=== PATIENT | male | born 1960 | race Hispanic/Latino ===

== ENCOUNTER → 2018-07-16 | Emergency (ER) | payer SELFPAY ==
[~2018-07-16] VITALS: Ht 162.6 cm; Wt 64.4 kg
--- OUTSIDE RECORDS SUMMARY | 2018-07-16 15:28 | XMS REPORT ---
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 Allergies, Adverse Reactions, Alerts Allergy Name Allergy Type Status Severity Reaction(s) Onset Date Inactive Date Treating Clinician Comments No Known Allergies DA Active U 2016-03-15 00:00:00 Medications This patient has no known medications. Encounters Start Date/Time End Date/Time Encounter Type Admission Type Attending Clinicians Care Facility Care Department Encounter ID 2017-10-10 15:38:30 Inpatient [facility] [id number] 2017-07-17 16:42:05 Inpatient [facility] [id number] 2017-07-17 00:00:00 Inpatient [facility] [id number] 2017-07-16 19:28:00 Inpatient [facility] [id number] 2017-07-16 00:00:00 Inpatient [facility] [id number] 2018-09-03 00:00:00 2018-09-03 00:00:00 Outpatient [facility] [id number] 2018-08-09 00:00:00 2018-08-09 00:00:00 Outpatient [facility] [id number] 2018-08-02 00:00:00 2018-08-02 00:00:00 Outpatient [facility] [id number] 2018-07-29 00:00:00 2018-07-29 00:00:00 Outpatient [facility] [id number] 2018-07-12 00:00:00 2018-07-12 00:00:00 Outpatient [facility] [id number] 2018-07-08 12:53:44 2018-07-08 12:53:44 Outpatient [facility] [id number] 2018-07-08 11:17:11 2018-07-08 11:17:11 Outpatient [facility] [id number] 2018-06-28 11:31:18 2018-06-28 11:31:18 Outpatient [facility] [id number] 2018-06-27 07:43:45 2018-06-27 07:43:45 Outpatient [facility] [id number] 2018-06-10 16:22:13 2018-06-10 16:22:13 Outpatient [facility] [id number] 2018-06-10 13:59:41 2018-06-10 13:59:41 Outpatient [facility] [id number] 2018-06-06 10:19:47 2018-06-06 10:19:47 Outpatient [facility] [id number] 2018-06-06 09:27:04 2018-06-06 09:27:04 Outpatient [facility] [id number] 2018-05-22 00:00:00 2018-05-22 00:00:00 Outpatient [facility] [id number] 2018-05-15 15:24:25 2018-05-15 15:24:25 Outpatient [facility] [id number] 2018-05-09 16:31:23 2018-05-09 16:31:23 Outpatient [facility] [id number] 2018-05-01 17:20:32 2018-05-01 17:20:32 Emergency [facility] [id number] 2018-05-01 16:08:06 2018-05-01 16:08:06 Emergency [facility] [id number] 2018-05-01 12:53:28 2018-05-01 12:53:28 Outpatient [facility] [id number] 2018-04-25 08:44:43 2018-04-25 08:44:43 Outpatient [facility] [id number] 2018-04-19 11:15:26 2018-04-19 11:15:26 Emergency [facility] [id number] 2018-04-19 09:34:27 2018-04-19 09:34:27 Outpatient [facility] [id number] 2018-04-15 00:00:00 2018-04-15 00:00:00 Outpatient [facility] [id number] 2018-04-01 10:09:08 2018-04-01 10:09:08 Outpatient [facility] [id number] 2018-03-19 13:43:55 2018-03-19 13:43:55 Outpatient [facility] [id number] 2018-03-11 11:10:28 2018-03-11 11:10:28 Outpatient [facility] [id number] 2018-02-27 15:35:39 2018-02-27 15:35:39 Outpatient [facility] [id number] 2018-02-26 00:00:00 2018-02-26 00:00:00 Outpatient [facility] [id number] 2018-02-25 00:00:00 2018-02-25 00:00:00 Outpatient [facility] [id number] 2018-02-24 17:22:48 2018-02-24 17:22:48 Emergency [facility] [id number] 2018-02-24 17:22:28 2018-02-24 17:22:28 Emergency [facility] [id number] 2018-02-24 17:22:17 2018-02-24 17:22:17 Emergency [facility] [id number] 2018-02-24 15:01:05 2018-02-24 15:01:05 Emergency [facility] [id number] 2018-02-24 00:00:00 2018-02-24 00:00:00 Emergency [facility] [id number] 2018-02-20 09:04:41 2018-02-20 09:04:41 Outpatient [facility] [id number] 2018-02-20 00:00:00 2018-02-20 00:00:00 Outpatient [facility] [id number] 2018-02-19 00:00:00 2018-02-19 00:00:00 Outpatient [facility] [id number] 2018-02-19 00:00:00 2018-02-19 00:00:00 Outpatient [facility] [id number] 2018-02-15 09:39:43 2018-02-15 09:39:43 Outpatient [facility] [id number] 2018-02-14 07:37:27 2018-02-14 07:37:27 Outpatient [facility] [id number] 2018-02-11 06:18:56 2018-02-11 06:18:56 Outpatient [facility] [id number] 2018-02-09 00:00:00 2018-02-09 00:00:00 Outpatient [facility] [id number] 2018-02-06 00:00:00 2018-02-06 00:00:00 Outpatient [facility] [id number] 2018-01-29 15:24:04 2018-01-29 15:24:04 Outpatient [facility] [id number] 2018-01-29 14:14:11 2018-01-29 14:14:11 Outpatient [facility] [id number] 2018-01-25 00:00:00 2018-01-25 00:00:00 Outpatient [facility] [id number] 2018-01-21 11:27:16 2018-01-21 11:27:16 Outpatient [facility] [id number] 2018-01-19 13:36:54 2018-01-19 13:36:54 Outpatient [facility] [id number] 2018-01-17 00:00:00 2018-01-17 00:00:00 Outpatient [facility] [id number] 2018-01-16 13:02:22 2018-01-16 13:02:22 Outpatient [facility] [id number] 2018-01-16 00:00:00 2018-01-16 00:00:00 Outpatient [facility] [id number] 2018-01-16 00:00:00 2018-01-16 00:00:00 Outpatient [facility] [id number] 2018-01-16 00:00:00 2018-01-16 00:00:00 Outpatient [facility] [id number] 2018-01-16 00:00:00 2018-01-16 00:00:00 Outpatient [facility] [id number] 2018-01-14 00:00:00 2018-01-14 00:00:00 Outpatient [facility] [id number] 2018-01-09 15:15:27 2018-01-09 15:15:27 Outpatient [facility] [id number] 2018-01-09 13:24:34 2018-01-09 13:24:34 Outpatient [facility] [id number] 2018-01-09 00:00:00 2018-01-09 00:00:00 Outpatient [facility] [id number] 2018-01-08 11:15:03 2018-01-08 11:15:03 Outpatient [facility] [id number] 2018-01-04 00:00:00 2018-01-04 00:00:00 Outpatient [facility] [id number] 2018-01-01 09:50:46 2018-01-01 09:50:46 Outpatient [facility] [id number] 2017-12-24 00:00:00 2017-12-24 00:00:00 Outpatient [facility] [id number] 2017-12-21 09:36:40 2017-12-21 09:36:40 Outpatient [facility] [id number] 2017-12-17 00:00:00 2017-12-17 00:00:00 Outpatient [facility] [id number] 2017-12-17 00:00:00 2017-12-17 00:00:00 Outpatient [facility] [id number] 2017-12-13 08:40:38 2017-12-13 08:40:38 Outpatient [facility] [id number] 2017-12-11 00:47:20 2017-12-11 00:47:20 Emergency [facility] [id number] 2017-12-11 00:00:00 2017-12-11 00:00:00 Outpatient [facility] [id number] 2017-12-10 15:14:55 2017-12-10 15:14:55 Outpatient [facility] [id number] 2017-12-05 12:54:24 2017-12-05 12:54:24 Outpatient [facility] [id number] 2017-12-03 06:28:00 2017-12-03 06:28:00 Outpatient [facility] [id number] 2017-12-03 00:00:00 2017-12-03 00:00:00 Outpatient [facility] [id number] 2017-11-26 00:00:00 2017-11-26 00:00:00 Outpatient [facility] [id number] 2017-11-19 00:00:00 2017-11-19 00:00:00 Outpatient [facility] [id number] 2017-11-09 13:21:54 2017-11-09 13:21:54 Outpatient [facility] [id number] 2017-11-09 00:00:00 2017-11-09 00:00:00 Outpatient [facility] [id number] 2017-11-06 16:06:44 2017-11-06 16:06:44 Outpatient [facility] [id number] 2017-11-05 00:00:00 2017-11-05 00:00:00 Outpatient [facility] [id number] 2017-11-05 00:00:00 2017-11-05 00:00:00 Outpatient [facility] [id number] 2017-11-02 00:00:00 2017-11-02 00:00:00 Outpatient [facility] [id number] 2017-10-29 00:00:00 2017-10-29 00:00:00 Outpatient [facility] [id number] 2017-10-29 00:00:00 2017-10-29 00:00:00 Outpatient [facility] [id number] 2017-10-25 08:45:08 2017-10-25 08:45:08 Outpatient [facility] [id number] 2017-10-23 14:10:00 2017-10-23 14:10:00 Outpatient [facility] [id number] 2017-10-23 00:00:00 2017-10-23 00:00:00 Outpatient [facility] [id number] 2017-10-22 13:53:50 2017-10-22 13:53:50 Outpatient [facility] [id number] 2017-10-22 00:00:00 2017-10-22 00:00:00 Outpatient [facility] [id number] 2017-10-17 11:33:30 2017-10-17 11:33:30 Outpatient [facility] [id number] 2017-10-15 13:42:28 2017-10-15 13:42:28 Outpatient [facility] [id number] 2017-10-09 17:59:35 2017-10-09 17:59:35 Outpatient [facility] [id number] 2017-10-09 17:59:31 2017-10-09 17:59:31 Outpatient [facility] [id number] 2017-10-09 12:59:13 2017-10-09 12:59:13 Outpatient [facility] [id number] 2017-10-05 12:25:23 2017-10-05 12:25:23 Outpatient [facility] [id number] 00:00:00 2017 00:00:00 Outpatient [facility] [id number] 2017-10-03 10:14:39 2017-10-03 10:14:39 Outpatient [facility] [id number] 2017-10-03 00:00:00 2017-10-03 00:00:00 Outpatient [facility] [id number] 2017-09-27 00:00:00 2017-09-27 00:00:00 Outpatient [facility] [id number] 2017-09-24 06:56:51 2017-09-24 06:56:51 Outpatient [facility] [id number] 2017-09-14 12:20:59 2017-09-14 12:20:59 Outpatient [facility] [id number] 2017-09-14 00:00:00 2017-09-14 00:00:00 Outpatient [facility] [id number] 2017-09-13 13:01:24 2017-09-13 13:01:24 Outpatient [facility] [id number] 2017-09-12 09:35:45 2017-09-12 09:35:45 Outpatient [facility] [id number] 2017-09-11 00:00:00 2017-09-11 00:00:00 Outpatient [facility] [id number] 2017-09-07 00:00:00 2017-09-07 00:00:00 Outpatient [facility] [id number] 2017-08-31 10:08:28 2017-08-31 10:08:28 Outpatient [facility] [id number] 2017-08-30 09:10:01 2017-08-30 09:10:01 Outpatient [facility] [id number] 2017-08-24 10:48:02 2017-08-24 10:48:02 Outpatient [facility] [id number] 2017-08-24 09:54:21 2017-08-24 09:54:21 Outpatient [facility] [id number] 2017-08-23 13:41:48 2017-08-23 13:41:48 Outpatient [facility] [id number] 2017-08-17 00:00:00 2017-08-17 00:00:00 Outpatient [facility] [id number] 2017-08-15 12:43:38 2017-08-15 12:43:38 Outpatient [facility] [id number] 2017-08-15 00:00:00 2017-08-15 00:00:00 Outpatient [facility] [id number] 2017-08-07 00:00:00 2017-08-07 00:00:00 Outpatient [facility] [id number] 2017-08-01 00:00:00 2017-08-01 00:00:00 Outpatient [facility] [id number] 2017-07-31 08:57:45 2017-07-31 08:57:45 Outpatient [facility] [id number] 2017-07-31 00:00:00 2017-07-31 00:00:00 Outpatient [facility] [id number] 2017-07-27 13:52:51 2017-07-27 13:52:51 Outpatient [facility] [id number] 2017-07-19 10:42:17 2017-07-19 00:00:00 Inpatient [facility] [id number] 2017-07-18 11:37:34 2017-07-18 00:00:00 Inpatient [facility] [id number] 2017-07-16 20:26:40 2017-07-16 00:00:00 Inpatient [facility] [id number] 2017-07-05 10:15:29 2017-07-05 10:15:29 Outpatient [facility] [id number] 2017-07-04 15:50:59 2017-07-04 15:50:59 Outpatient [facility] [id number] 2017-06-29 21:46:26 2017-06-29 21:46:26 Emergency [facility] [id number] 2017-06-29 16:56:00 2017-06-29 16:56:00 Emergency [facility] [id number] 2017-06-29 12:22:31 2017-06-29 12:22:31 Outpatient [facility] [id number] 2017-06-27 10:55:15 2017-06-27 10:55:15 Outpatient [facility] [id number] 2017-06-21 00:00:00 2017-06-21 00:00:00 Outpatient [facility] [id number] 2017-06-14 11:39:35 2017-06-14 11:39:35 Outpatient [facility] [id number] 2017-06-12 12:29:45 2017-06-12 12:29:45 Outpatient [facility] [id number] 2017-06-12 11:50:02 2017-06-12 11:50:02 Outpatient [facility] [id number] 2017-06-11 10:07:08 2017-06-11 10:07:08 Outpatient [facility] [id number] 2017-06-11 00:00:00 2017-06-11 00:00:00 Outpatient [facility] [id number] 2017-06-01 13:08:05 2017-06-01 13:08:05 Outpatient [facility] [id number] 2017-05-28 00:00:00 2017-05-28 00:00:00 Outpatient [facility] [id number] 2017-05-18 09:09:02 2017-05-18 09:09:02 Outpatient [facility] [id number] 2017-05-11 00:00:00 2017-05-11 00:00:00 Outpatient [facility] [id number] 2017-05-10 00:00:00 2017-05-10 00:00:00 Outpatient [facility] [id number] 2017-05-08 09:42:13 2017-05-08 09:42:13 Outpatient [facility] [id number] 2017-04-25 00:00:00 2017-04-25 00:00:00 Outpatient [facility] [id number] 2017-04-23 00:00:00 2017-04-23 00:00:00 Outpatient [facility] [id number] 2017-04-18 12:59:25 2017-04-18 12:59:25 Outpatient [facility] [id number] 2017-04-17 09:12:31 2017-04-17 09:12:31 Outpatient [facility] [id number] 2017-04-11 00:00:00 2017-04-11 00:00:00 Outpatient [facility] [id number] 2017-04-10 08:43:32 2017-04-10 08:43:32 Outpatient [facility] [id number] 2017-03-26 09:32:50 2017-03-26 09:32:50 Outpatient [facility] [id number] 2017-03-26 00:00:00 2017-03-26 00:00:00 Outpatient [facility] [id number] 2017-03-22 07:23:00 2017-03-22 07:23:00 Outpatient [facility] [id number] 2017-03-20 00:00:00 2017-03-20 00:00:00 Outpatient [facility] [id number] 2017-03-16 00:00:00 2017-03-16 00:00:00 Outpatient [facility] [id number] 2017-03-15 15:09:39 2017-03-15 15:09:39 Outpatient [facility] [id number] 2017-03-14 10:11:43 2017-03-14 10:11:43 Outpatient [facility] [id number] 2017-03-09 13:28:22 2017-03-09 13:28:22 Outpatient [facility] [id number] 2017-03-09 08:52:25 2017-03-09 08:52:25 Outpatient [facility] [id number] 2017-03-08 00:00:00 2017-03-08 00:00:00 Outpatient [facility] [id number] 2017-03-07 15:32:43 2017-03-07 15:32:43 Outpatient [facility] [id number] 2017-03-05 12:08:56 2017-03-05 12:08:56 Outpatient [facility] [id number] 2017-03-05 00:00:00 2017-03-05 00:00:00 Outpatient [facility] [id number] 2017-03-01 10:23:58 2017-03-01 10:23:58 Outpatient [facility] [id number] 2017-02-28 00:00:00 2017-02-28 00:00:00 Outpatient [facility] [id number] 2017-02-23 00:00:00 2017-02-23 00:00:00 Outpatient [facility] [id number] 2017-02-23 00:00:00 2017-02-23 00:00:00 Outpatient [facility] [id number] 2017-02-23 00:00:00 2017-02-23 00:00:00 Outpatient [facility] [id number] 2017-02-22 15:05:02 2017-02-22 15:05:02 Outpatient [facility] [id number] 2017-02-21 09:14:00 2017-02-21 09:14:00 Outpatient [facility] [id number] 2017-02-20 13:06:07 2017-02-20 13:06:07 Outpatient [facility] [id number] 2017-02-19 00:00:00 2017-02-19 00:00:00 Outpatient [facility] [id number] 2017-02-16 13:29:30 2017-02-16 13:29:30 Outpatient [facility] [id number] 2017-02-12 10:14:01 2017-02-12 10:14:01 Outpatient [facility] [id number] 2017-02-12 00:00:00 2017-02-12 00:00:00 Outpatient [facility] [id number] 2017-02-09 07:50:10 2017-02-09 07:50:10 Outpatient [facility] [id number] 2017-02-06 00:00:00 2017-02-06 00:00:00 Outpatient [facility] [id number] 2017-02-01 00:00:00 2017-02-01 00:00:00 Outpatient [facility] [id number] 2017-01-29 12:35:48 2017-01-29 12:35:48 Outpatient [facility] [id number] 2017-01-29 00:00:00 2017-01-29 00:00:00 Outpatient [facility] [id number] 2017-01-29 00:00:00 2017-01-29 00:00:00 Outpatient [facility] [id number] 2017-01-25 07:48:34 2017-01-25 07:48:34 Outpatient [facility] [id number] 2017-01-23 12:28:16 2017-01-23 12:28:16 Outpatient [facility] [id number] 2017-01-23 00:00:00 2017-01-23 00:00:00 Outpatient [facility] [id number] 2017-01-19 00:00:00 2017-01-19 00:00:00 Outpatient [facility] [id number] 2017-01-17 08:06:37 2017-01-17 08:06:37 Outpatient [facility] [id number] 2017-01-16 11:34:31 2017-01-16 11:34:31 Outpatient [facility] [id number] 2017-01-16 09:57:12 2017-01-16 09:57:12 Outpatient [facility] [id number] 2017-01-15 07:58:53 2017-01-15 07:58:53 Outpatient [facility] [id number] 2017-01-10 15:53:47 2017-01-10 15:53:47 Emergency [facility] [id number] 2017-01-02 00:00:00 2017-01-02 00:00:00 Outpatient [facility] [id number] 2016-12-29 07:42:52 2016-12-29 07:42:52 Outpatient [facility] [id number] 2016-12-29 07:28:28 2016-12-29 07:28:28 Outpatient [facility] [id number] 2016-12-29 00:00:00 2016-12-29 00:00:00 Outpatient [facility] [id number] 2016-12-29 00:00:00 2016-12-29 00:00:00 Outpatient [facility] [id number] 2016-12-27 14:39:04 2016-12-27 14:39:04 Outpatient [facility] [id number] 2016-12-26 13:12:46 2016-12-26 13:12:46 Outpatient [facility] [id number] 2016-12-25 14:48:26 2016-12-25 14:48:26 Outpatient [facility] [id number] 2016-12-19 15:58:12 2016-12-19 15:58:12 Outpatient [facility] [id number] 2016-12-19 15:23:46 2016-12-19 15:23:46 Outpatient [facility] [id number] 2016-12-19 14:39:51 2016-12-19 14:39:51 Outpatient [facility] [id number] 2016-12-17 00:00:00 2016-12-17 00:00:00 Outpatient [facility] [id number] 2016-12-15 14:09:13 2016-12-15 14:09:13 Outpatient [facility] [id number] 2016-12-12 00:00:00 2016-12-12 00:00:00 Outpatient [facility] [id number] 2016-12-07 00:00:00 2016-12-07 00:00:00 Outpatient [facility] [id number] 2016-12-07 00:00:00 2016-12-07 00:00:00 Outpatient [facility] [id number] 2016-12-06 11:56:43 2016-12-06 11:56:43 Outpatient [facility] [id number] 2016-12-01 15:02:48 2016-12-01 15:02:48 Outpatient [facility] [id number] 2016-11-23 13:58:20 2016-11-23 13:58:20 Outpatient [facility] [id number] 2016-11-23 09:15:24 2016-11-23 09:15:24 Outpatient [facility] [id number] 2016-11-23 07:52:19 2016-11-23 07:52:19 Outpatient [facility] [id number] 2016-11-21 00:00:00 2016-11-21 00:00:00 Outpatient [facility] [id number] 2016-11-20 00:00:00 2016-11-20 00:00:00 Outpatient [facility] [id number] 2016-11-15 09:10:54 2016-11-15 09:10:54 Outpatient [facility] [id number] 2016-11-15 00:00:00 2016-11-15 00:00:00 Outpatient [facility] [id number] 2016-11-13 00:00:00 2016-11-13 00:00:00 Outpatient [facility] [id number] 2016-10-30 00:00:00 2016-10-30 00:00:00 Outpatient [facility] [id number] 2016-10-27 00:00:00 2016-10-27 00:00:00 Outpatient [facility] [id number] 2016-10-25 10:22:48 2016-10-25 10:22:48 Outpatient [facility] [id number] 2016-10-20 00:00:00 2016-10-20 00:00:00 Outpatient [facility] [id number] 2016-10-19 00:00:00 2016-10-19 00:00:00 Outpatient [facility] [id number] 2016-10-12 00:00:00 2016-10-12 00:00:00 Outpatient [facility] [id number] 2016-10-11 13:17:39 2016-10-11 13:17:39 Outpatient [facility] [id number] 2016-10-03 11:15:58 2016-10-03 11:15:58 Outpatient [facility] [id number] 2016-10-03 00:00:00 2016-10-03 00:00:00 Outpatient [facility] [id number] 2016-09-19 09:22:00 2016-09-19 09:22:00 Outpatient [facility] [id number] 2016-09-19 07:56:30 2016-09-19 07:56:30 Outpatient [facility] [id number] 2016-09-15 13:25:30 2016-09-15 13:25:30 Outpatient [facility] [id number] 2016-09-10 07:52:41 2016-09-10 07:52:41 Outpatient [facility] [id number] 2016-09-06 11:00:37 2016-09-06 11:00:37 Outpatient [facility] [id number] 2016-02-04 11:41:48 2016-02-04 11:41:48 Outpatient [facility] [id number]
== END | disposition left against medical advice (07) ==
LOC: ER 15:24
DX: M79.674 Pain in right toe(s) (principal); I10 Essential (primary) hypertension; J45.909 Unspecified asthma, uncomplicated; D64.9 Anemia, unspecified; K21.9 Gastro-esophageal reflux disease without esophagitis

== ENCOUNTER 2018-12-27 16:00 | Emergency (ER) | payer OTHER ==
[~2018-12-27] VITALS: Ht 162.6 cm; Wt 62.1 kg
[2018-12-27 18:08] LABS: BASOPHILS # (AUTO) 0.1 (0.0-0.1); BASOPHILS % 0.7 % (0.0-1.0); EOSINOPHILS # (AUTO) 0.1 (0.0-0.4); EOSINOPHILS % 0.6 % (0.0-6.0); HEMATOCRIT 40.1 % (38.2-49.6); HEMOGLOBIN 14.4 g/dL (14.0-18.0); LYMPHOCYTES # (AUTO) 3.6 (1.0-3.2); MEAN CORPUSCULAR HGB CONC 35.9 g/dL (31-35); MONOCYTES # (AUTO) 0.7 (0.2-0.8); MONOCYTES % 8.8 % (4.4-11.3); NEUTROPHILS # (AUTO) 3.8 (2.1-6.9); NEUTROPHILS % 45.7 % (38.7-80.0); PLATELET COUNT 273 x10e3/uL (140-360); RED BLOOD COUNT 4.36 x10e6/uL (4.3-5.7); RED CELL DISTRIBUTION WIDTH 13.2 % (11.7-14.4)
[2018-12-27 18:22] LABS: ALANINE AMINOTRANSFERASE 11 IU/L (0-55); ALBUMIN 4.6 g/dL (3.5-5.0); ALBUMIN/GLOBULIN RATIO 1.6 (0.8-2.0); ALKALINE PHOSPHATASE 71 IU/L (40-150); ANION GAP 14.4 mmol/L (8-16); BLOOD UREA NITROGEN 7 mg/dL (7-26); BUN/CREATININE RATIO 11 (6-25); CALCIUM 9.8 mg/dL (8.4-10.2); CARBON DIOXIDE 23 mmol/L (22-29); CHLORIDE 105 mmol/L (98-107); CREATININE, SERUM 0.65 mg/dL (0.72-1.25); EST GLOMERULAR FILTRATION RATE > 60 ML/MIN (60-); GLUCOSE 82 mg/dL (74-118); POTASSIUM 3.4 mmol/L (3.5-5.1); SODIUM 139 mmol/L (136-145)
[2018-12-27 18:22] LABS: BILIRUBIN,URINE NEGATIVE (NEGATIVE); CLARITY,URINE CLEAR (CLEAR); COLOR,URINE YELLOW (YELLOW); KETONES,URINE NEGATIVE (NEGATIVE); LEUKOCYTE ESTERASE ,URINE NEGATIVE (NEGATIVE); NITRITE,URINE NEGATIVE (NEGATIVE); PROTEIN,URINE DIPSTICK NEGATIVE (NEGATIVE); URINE UROBILINOGEN 0.2 mg/dL (0.2 - 1)
[2018-12-27 18:34] LABS: AMYLASE 79 U/L (25-125); LIPASE 18 U/L (8-78)
[2018-12-27] MEDS ORDERED: ONDANSETRON HCL INJ 2MG/ML 2ML 2 MG/ML VIAL IV STA (20:16)
[2018-12-27] MEDS ORDERED: SODIUM CHLORIDE 0.9% 1000ML 1,000 ML IV STA (20:16)
[2018-12-27] MEDS ORDERED: PANTOPRAZOLE 40 MG 10ML VIAL IV STA (20:21)
[2018-12-27] MEDS ORDERED: PANTOPRAZOLE 40 MG 10ML VIAL ONE (20:28)
[2018-12-27] MEDS ORDERED: ONDANSETRON HCL INJ 2MG/ML 2ML 2 MG/ML VIAL ONE (20:28)
[2018-12-27] MEDS ORDERED: DICYCLOMINE HCL 20 MG/2 ML VIAL IM ONE (20:30)
[2018-12-27] MEDS ORDERED: ALBUTEROL SULF 0.083% NEB SOLN 3 ML NEB NEB STA (20:40)
[2018-12-27] MEDS ORDERED: IPRATROPIUM BROMIDE 0.02% 2.5 ML NEB NEB STA (20:40)
--- NOTE | 2018-12-27 21:21 | Diagnostic Imaging Report ---
CT BRAIN WO HISTORY: Dizziness, fall COMPARISON: None. Technique: Noncontrast axial scans were obtained from skull base to the vertex. Coronal and sagittal reconstructions obtained from the axial data. One or more of the following dose reduction techniques were used: Automated exposure control, adjustment of the mA and/or kV according to patient size, and/or utilization of iterative reconstruction technique. DISCUSSION: Scalp/Skull: Unremarkable. Brain sulci: Mildly prominent. Ventricles: Compensatory dilatation. Extra-axial spaces: No masses or fluid collections. Carotid siphon calcifications are present. Parenchyma: Mild bilateral deep white matter hypodensity is likely chronic microvascular ischemic change. Otherwise, no masses, hemorrhage, or large vascular territory acute infarct. Dural sinuses: No abnormal densities. Sellar/Suprasellar region: Intact. Skull base: Intact. Incidental findings: None. IMPRESSION: 1. No acute intracranial abnormalities. 2. Mild supratentorial chronic microvascular ischemic change. Mild generalized cerebral volume loss. Signed by: Dr. Ariel Son M.D. on 12/27/2018 9:18 PM
[2018-12-27 21:38] VITALS: BP 115/72
== END 2018-12-27 22:53 | disposition home or self-care (01) ==
LOC: ER 16:00
DX: K29.00 Acute gastritis without bleeding (principal); R11.14 Bilious vomiting; I10 Essential (primary) hypertension; J45.909 Unspecified asthma, uncomplicated; K21.9 Gastro-esophageal reflux disease without esophagitis; E78.5 Hyperlipidemia, unspecified; D64.9 Anemia, unspecified; Z86.73 Personal history of transient ischemic attack (TIA), and cerebral infarction without residual deficits
CPT/HCPCS: 36415; 70450; 80053; 81001; 82150; 82550; 82553; 83690; 84484; 85025; 93005; 94644; 96372; 96374; 99284; C9113; J0500; J2405; J7030

== ENCOUNTER → 2019-07-04 | Emergency (ER) | payer OTHER ==
[~2019-07-04] VITALS: Ht 162.6 cm; Wt 62.1 kg
[~2019-07-04] MED LIST: IBUPROFEN 400 MG TAB ONE
--- NOTE | 2019-07-04 14:30 | NUR ---
urinary catheter in for total output of 550 ml of clear colorless urine. catheter removed per patient request.
[2019-07-04 14:56] LABS: BILIRUBIN,URINE NEGATIVE (NEGATIVE); CLARITY,URINE CLEAR (CLEAR); COLOR,URINE YELLOW (YELLOW); KETONES,URINE NEGATIVE (NEGATIVE); LEUKOCYTE ESTERASE ,URINE NEGATIVE (NEGATIVE); NITRITE,URINE NEGATIVE (NEGATIVE); PROTEIN,URINE DIPSTICK NEGATIVE (NEGATIVE); URINE UROBILINOGEN 0.2 mg/dL (0.2 - 1)
[2019-07-04 15:10] LABS: WBC,URINE (MAN) 0-5 /HPF (0-5)
[2019-07-04 15:11] LABS: EPITHELIAL CELLS,URINE FEW /LPF
== END | disposition home or self-care (01) ==
LOC: ER 13:50
DX: R33.9 Retention of urine, unspecified (principal); R30.0 Dysuria; I10 Essential (primary) hypertension
CPT/HCPCS: 81001; 87086

== ENCOUNTER 2019-08-19 06:46 | Emergency (ER) | payer OTHER ==
[~2019-08-19] VITALS: Ht 162.6 cm; Wt 62.1 kg
[2019-08-19] MEDS ORDERED: KETOROLAC TROMETHAMINE 60 MG/2 ML VIAL IM ONE (08:00)
[2019-08-19] MEDS ORDERED: GABAPENTIN 300 MG CAP PO ONE (08:00)
[2019-08-19] MEDS ORDERED: GABAPENTIN 100 MG CAP PO ONE (08:00)
[2019-08-19] MEDS ORDERED: KETOROLAC TROMETHAMINE 60 MG/2 ML VIAL ONE (08:02)
[2019-08-19] MEDS ORDERED: GABAPENTIN 300 MG CAP ONE (08:02)
== END 2019-08-19 11:18 | disposition home or self-care (01) ==
LOC: ER 06:46
DX: M79.604 Pain in right leg (principal); R60.9 Edema, unspecified
CPT/HCPCS: 93971; 99283; J1885

== ENCOUNTER 2019-09-05 13:49 | Emergency (ER) | payer OTHER ==
[~2019-09-05] VITALS: Ht 162.6 cm; Wt 62.1 kg
[2019-09-05] MEDS ORDERED: PAMELOR25 MG PO (14:28)
[2019-09-05] MEDS ORDERED: HYDROXYZINE HCL25 MG PO (14:28)
[2019-09-05] MEDS ORDERED: GABAPENTIN300 MG PO (14:28)
[2019-09-05] MEDS ORDERED: LIPITOR10 MG PO (14:29)
[2019-09-05] MEDS ORDERED: OMEPRAZOLE40 MG PO (14:29)
== END 2019-09-05 14:16 | disposition home or self-care (01) ==
LOC: ER 13:49
DX: M79.661 Pain in right lower leg (principal); I10 Essential (primary) hypertension; E78.5 Hyperlipidemia, unspecified; Z86.73 Personal history of transient ischemic attack (TIA), and cerebral infarction without residual deficits
CPT/HCPCS: 99283

== ENCOUNTER → 2019-09-11 | Day surgery (SDC) | payer OTHER ==
[~2019-09-11] MED LIST changes: +GABAPENTIN300 MG PO; +HYDROXYZINE HCL25 MG PO; -IBUPROFEN 400 MG TAB ONE; +LIDOCAINE HCL 2% LOCAL INJ 5 ML SDV VIAL INJ ONE; +LIPITOR10 MG PO; +MIDAZOLAM HCL 2 MG/2 ML VIAL ONE; +OMEPRAZOLE40 MG PO; +PAMELOR25 MG PO; +PROPOFOL IV EMULSION 10 MG/ML 20 ML VIAL ONE
[2019-09-11 08:20] VITALS: BP 138/84
== END | disposition home or self-care (01) ==
LOC: OR 05:35
PROVIDERS: ATTEND Internal Medicine Gastroenterology
DX: K92.1 Melena (principal); K59.00 Constipation, unspecified; K62.89 Other specified diseases of anus and rectum; K57.30 Diverticulosis of large intestine without perforation or abscess without bleeding; K64.8 Other hemorrhoids; K21.9 Gastro-esophageal reflux disease without esophagitis; J45.909 Unspecified asthma, uncomplicated; I10 Essential (primary) hypertension; E78.00 Pure hypercholesterolemia, unspecified; M19.90 Unspecified osteoarthritis, unspecified site; R42 Dizziness and giddiness; F41.9 Anxiety disorder, unspecified; Z88.8 Allergy status to other drugs, medicaments and biological substances; Z01.810 Encounter for preprocedural cardiovascular examination; Z01.812 Encounter for preprocedural laboratory examination; Z11.59 Encounter for screening for other viral diseases; Z87.891 Personal history of nicotine dependence
CPT/HCPCS: 45380; 87635; 93005; J2001; J2250; J2704; 45378

== ENCOUNTER → 2020-07-15 | Outpatient (CLI) | payer OTHER ==
[~2020-07-15] MED LIST changes: +DIATRIZOATE MEGL/DIATRIZOA SOD 30 ML BTL PO ONE; +IOPAMIDOL 370 MG/ML 200 ML INFUS..BTL INJ ONE; -LIDOCAINE HCL 2% LOCAL INJ 5 ML SDV VIAL INJ ONE; -MIDAZOLAM HCL 2 MG/2 ML VIAL ONE; -PROPOFOL IV EMULSION 10 MG/ML 20 ML VIAL ONE; +SODIUM CHLORIDE 0.9% 50ML 0 ML ONE
== END ==
LOC: CT 06:52
PROVIDERS: ATTEND Internal Medicine Gastroenterology
DX: K57.92 Diverticulitis of intestine, part unspecified, without perforation or abscess without bleeding (principal)
CPT/HCPCS: 74176; Q9967

== ENCOUNTER 2020-09-23 09:36 | Emergency (ER) | payer OTHER ==
[~2020-09-23] VITALS: Ht 162.6 cm; Wt 62.1 kg
[~2020-09-23 09:36] MED LIST changes: -DIATRIZOATE MEGL/DIATRIZOA SOD 30 ML BTL PO ONE; -IOPAMIDOL 370 MG/ML 200 ML INFUS..BTL INJ ONE; -SODIUM CHLORIDE 0.9% 50ML 0 ML ONE
[2020-09-23] MEDS ORDERED: SODIUM CHLORIDE 0.9% 1000ML 1,000 ML IV STA (09:48)
[2020-09-23] MEDS ORDERED: MORPHINE SULFATE INJ 4 MG/ML INJ 1ML IV STA ×2 (09:48)
[2020-09-23] MEDS ORDERED: ONDANSETRON HCL INJ 2MG/ML 2ML 2 MG/ML VIAL IV STA (09:48)
[2020-09-23 10:17] LABS: BASOPHILS # (AUTO) 0.1 (0.0-0.1); BASOPHILS % 0.9 % (0.0-1.0); EOSINOPHILS % 0.4 % (0.0-6.0); HEMATOCRIT 41.1 % (38.2-49.6); HEMOGLOBIN 14.3 g/dL (14.0-18.0); LYMPHOCYTES # (AUTO) 2.8 (1.0-3.2); LYMPHOCYTES % 36.5 % (18.0-39.1); MEAN CORPUSCULAR HEMOGLOBIN 32.6 pg (28-32); MEAN CORPUSCULAR HGB CONC 34.8 g/dL (31-35); MEAN CORPUSCULAR VOLUME 93.6 fL (81-99); MONOCYTES # (AUTO) 0.7 (0.2-0.8); NEUTROPHILS % 52.9 % (38.7-80.0); PLATELET COUNT 246 x10e3/uL (140-360); RED BLOOD COUNT 4.39 x10e6/uL (4.3-5.7); RED CELL DISTRIBUTION WIDTH 14.1 % (11.7-14.4)
[2020-09-23 10:35] LABS: ALANINE AMINOTRANSFERASE 20 IU/L (0-55); ALBUMIN 4.6 g/dL (3.5-5.0); ALBUMIN/GLOBULIN RATIO 1.4 (0.8-2.0); ALKALINE PHOSPHATASE 85 IU/L (40-150); ANION GAP 14.7 mmol/L (8-16); BLOOD UREA NITROGEN 5 mg/dL (7-26); BUN/CREATININE RATIO 7 (6-25); CALCIUM 9.2 mg/dL (8.4-10.2); CARBON DIOXIDE 25 mmol/L (22-29); CHLORIDE 102 mmol/L (98-107); CREATINE KINASE 154 IU/L (30-200); CREATININE, SERUM 0.75 mg/dL (0.72-1.25); EST GLOMERULAR FILTRATION RATE > 60 ML/MIN (60-); GLUCOSE 91 mg/dL (74-118); POTASSIUM 3.7 mmol/L (3.5-5.1); SODIUM 138 mmol/L (136-145)
[2020-09-23 10:54] LABS: LIPASE 25 U/L (8-78)
[2020-09-23] MEDS ORDERED: IOPAMIDOL 370 MG/ML 200 ML INFUS..BTL INJ ONE (11:12)
[2020-09-23] MEDS ORDERED: SODIUM CHLORIDE 0.9% 50ML 50 ML ONE (11:12)
[2020-09-23 11:15] LABS: CLARITY,URINE CLEAR (CLEAR); COLOR,URINE YELLOW (YELLOW); KETONES,URINE NEGATIVE (NEGATIVE); LEUKOCYTE ESTERASE ,URINE NEGATIVE (NEGATIVE); NITRITE,URINE NEGATIVE (NEGATIVE); PROTEIN,URINE DIPSTICK NEGATIVE (NEGATIVE); URINE UROBILINOGEN 0.2 mg/dL (0.2 - 1)
[2020-09-23 11:19] LABS: BACTERIA,URINE FEW /HPF; EPITHELIAL CELLS,URINE FEW /LPF; RBC,URINE 0-5 /HPF (0-5); WBC,URINE (MAN) 0-5 /HPF (0-5)
== END 2020-09-23 13:38 | disposition home or self-care (01) ==
LOC: ER 09:51
DX: R10.32 Left lower quadrant pain (principal); R10.13 Epigastric pain; I10 Essential (primary) hypertension; E78.5 Hyperlipidemia, unspecified; M54.9 Dorsalgia, unspecified; G89.29 Other chronic pain; Z87.19 Personal history of other diseases of the digestive system
CPT/HCPCS: 36415; 74177; 80053; 81001; 82550; 82553; 83690; 84484; 85025; 93005; 99284; J2270; J2405; J7030; Q9967

== ENCOUNTER 2021-04-30 14:46 | Emergency (ER) | payer OTHER ==
[~2021-04-30] VITALS: Ht 162.6 cm; Wt 69.4 kg
[2021-04-30 16:28] LABS: BASOPHILS # (AUTO) 0.1 (0.0-0.1); BASOPHILS % 1.1 % (0.0-1.0); EOSINOPHILS # (AUTO) 0.2 (0.0-0.4); EOSINOPHILS % 2.6 % (0.0-6.0); HEMATOCRIT 39.9 % (38.2-49.6); HEMOGLOBIN 13.5 g/dL (14.0-18.0); LYMPHOCYTES # (AUTO) 4.1 (1.0-3.2); LYMPHOCYTES % 50.9 % (18.0-39.1); MEAN CORPUSCULAR HEMOGLOBIN 32.2 pg (28-32); MEAN CORPUSCULAR HGB CONC 33.8 g/dL (31-35); MEAN CORPUSCULAR VOLUME 95.2 fL (81-99); MONOCYTES # (AUTO) 0.9 (0.2-0.8); MONOCYTES % 10.6 % (4.4-11.3); NEUTROPHILS # (AUTO) 2.8 (2.1-6.9); NEUTROPHILS % 34.7 % (38.7-80.0); PLATELET COUNT 263 x10e3/uL (140-360); RED BLOOD COUNT 4.19 x10e6/uL (4.3-5.7); RED CELL DISTRIBUTION WIDTH 13.1 % (11.7-14.4)
[2021-04-30 16:43] LABS: CLARITY,URINE CLEAR (CLEAR); COLOR,URINE YELLOW (YELLOW); KETONES,URINE NEGATIVE (NEGATIVE); LEUKOCYTE ESTERASE ,URINE NEGATIVE (NEGATIVE); NITRITE,URINE NEGATIVE (NEGATIVE); PROTEIN,URINE DIPSTICK NEGATIVE (NEGATIVE); URINE UROBILINOGEN 0.2 mg/dL (0.2 - 1)
[2021-04-30 16:47] LABS: ALBUMIN 4.1 g/dL (3.5-5.0); ALBUMIN/GLOBULIN RATIO 1.5 (0.8-2.0); CALCIUM 8.5 mg/dL (8.4-10.2); CREATININE, SERUM 0.83 mg/dL (0.72-1.25)
[2021-04-30 16:52] LABS: BACTERIA,URINE FEW /HPF; EPITHELIAL CELLS,URINE RARE /LPF; WBC,URINE (MAN) 0-5 /HPF (0-5)
[2021-04-30] MEDS ORDERED: KETOROLAC TROMETHAMINE 30 MG/ML VIAL IV STA (18:09)
[2021-04-30] MEDS ORDERED: KETOROLAC TROMETHAMINE 30 MG/ML VIAL ONE (18:22)
== END 2021-04-30 18:39 | disposition home or self-care (01) ==
LOC: ER 15:21
DX: R10.32 Left lower quadrant pain (principal); I10 Essential (primary) hypertension; E78.5 Hyperlipidemia, unspecified; K21.9 Gastro-esophageal reflux disease without esophagitis; J45.909 Unspecified asthma, uncomplicated; M54.9 Dorsalgia, unspecified; G89.29 Other chronic pain; Z86.73 Personal history of transient ischemic attack (TIA), and cerebral infarction without residual deficits; Z87.19 Personal history of other diseases of the digestive system
CPT/HCPCS: 36415; 74177; 80053; 81001; 85025; 99284; J1885

== ENCOUNTER 2021-09-30 18:04 | Emergency (ER) | payer OTHER ==
[~2021-09-30] VITALS: Ht 162.6 cm; Wt 64.4 kg
[2021-09-30] MEDS ORDERED: ONDANSETRON HCL INJ 2MG/ML 2ML 2 MG/ML VIAL IV STA (18:39)
[2021-09-30] MEDS ORDERED: Morphine 4mg Syringe 4 MG/ML INJ IV ONE (18:45)
[2021-09-30 19:21] LABS: BASOPHILS # (AUTO) 0.1 (0.0-0.1); BASOPHILS % 0.9 % (0.0-1.0); EOSINOPHILS # (AUTO) 0.1 (0.0-0.4); EOSINOPHILS % 1.5 % (0.0-6.0); HEMATOCRIT 40.9 % (38.2-49.6); HEMOGLOBIN 14.1 g/dL (14.0-18.0); LYMPHOCYTES # (AUTO) 4.2 (1.0-3.2); LYMPHOCYTES % 48.6 % (18.0-39.1); MEAN CORPUSCULAR HEMOGLOBIN 31.8 pg (28-32); MEAN CORPUSCULAR HGB CONC 34.5 g/dL (31-35); MEAN CORPUSCULAR VOLUME 92.3 fL (81-99); MONOCYTES # (AUTO) 0.8 (0.2-0.8); MONOCYTES % 8.6 % (4.4-11.3); NEUTROPHILS # (AUTO) 3.5 (2.1-6.9); NEUTROPHILS % 40.2 % (38.7-80.0); PLATELET COUNT 287 x10e3/uL (140-360); RED BLOOD COUNT 4.43 x10e6/uL (4.3-5.7); RED CELL DISTRIBUTION WIDTH 13.7 % (11.7-14.4)
[2021-09-30 19:46] LABS: ALBUMIN 4.1 g/dL (3.5-5.0); ALBUMIN/GLOBULIN RATIO 1.2 (0.8-2.0); ANION GAP 13.3 mmol/L (8-16); CALCIUM 8.9 mg/dL (8.4-10.2); CREATININE, SERUM 0.87 mg/dL (0.72-1.25); POTASSIUM 3.3 mmol/L (3.5-5.1)
[2021-09-30 19:47] LABS: AMYLASE 93 U/L (25-125); LIPASE 23 U/L (8-78)
[2021-09-30] MEDS ORDERED: IOPAMIDOL 370 MG/ML 100 ML INFUS..BTL INJ ONE (20:15)
[2021-09-30 22:15] VITALS: BP 127/49
== END 2021-09-30 21:45 | disposition home or self-care (01) ==
LOC: ER 18:28
DX: R10.30 Lower abdominal pain, unspecified (principal); K92.9 Disease of digestive system, unspecified
CPT/HCPCS: 36415; 74177; 80053; 82150; 83690; 85025; 99284; J2270; J2405; Q9967